=== PATIENT | female | born 1970 | race Caucasian/White ===

== ENCOUNTER 2024-02-19 14:08 | Emergency (ER) | payer BC ==
[2024-02-19 15:42] VITALS: BP 103/76
== END 2024-02-19 15:44 | disposition home or self-care (01) ==
LOC: ED 14:08
DX: S61.211A Laceration without foreign body of left index finger without damage to nail, initial encounter (principal); W26.0XXA Contact with knife, initial encounter
CPT/HCPCS: 90715

== ENCOUNTER 2024-03-20 18:16 | Emergency (ER) | payer BC ==
[~2024-03-20] VITALS: Ht 170.2 cm; Wt 74.1 kg
[2024-03-20 20:04] VITALS: BP 116/84
== END 2024-03-20 20:10 | disposition home or self-care (01) ==
LOC: ED 18:16
DX: S99.912A Unspecified injury of left ankle, initial encounter (principal); W01.0XXA Fall on same level from slipping, tripping and stumbling without subsequent striking against object, initial encounter
CPT/HCPCS: 15970; L4386